=== PATIENT | male | born 1990 | race Caucasian/White ===

== ENCOUNTER 2017-10-26 08:03 | Emergency (ER) | payer OTHER ==
[~2017-10-26] VITALS: Ht 154.9 cm; Wt 125.2 kg
[2017-10-26 08:07] VITALS: BP 119/64
== END 2017-10-26 09:02 | disposition home or self-care (01) ==
LOC: ED 08:03
DX: R10.9 Unspecified abdominal pain (principal); R19.7 Diarrhea, unspecified